=== PATIENT | female | born 1960 | race Caucasian/White ===

== ENCOUNTER 2020-12-25 17:05 | Observation (INO) ==
[2020-12-25] MEDS ORDERED: NITROGLYCERIN SL 0.4 MG TABLET SL PRN (17:49)
[2020-12-25] MEDS ORDERED: ASPIRIN 325 MG TABLET PO STA (17:49)
[2020-12-25 18:09] LABS: Basophils % 0.8 % (0.0-0.8); Eosinophils # 0.1 10*3/uL (0.0-0.87); Eosinophils % 1.7 % (0.00-10.9); Hematocrit 40.6 VOL% (35.7-47.0); Hemoglobin 13.7 GM/DL (12.0-16.0); Immature Granulocytes % 0.2 %; Immature Granulocytes Absolute 0.01 #; Lymphocytes # 1.8 10*3/uL (1.4-4.0); Lymphocytes % 37.1 % (21.3-54.2); Mean Corpuscular HGB Conc 33.7 GM/DL (32-36); Mean Platelet Volume 10.5 FL (9.6-12.0); Monocytes % 16.9 % (1.7-12.7); Neutrophils % 43.3 % (38.7-73.9); Platelet Count 131 T/CUMM (130-400); Red Cell Distribution Width 13.2 % (9.3-17.3); White Blood Count 4.8 T/CUMM (4-12)
[2020-12-25 18:21] LABS: Albumin 3.2 G/DL (3.4-5.0); Bilirubin,Total 1.1 MG/DL (0.2-1.0); Osmolality,Calculated 280.4 MOS/KG (273-304); Potassium 3.8 MMOL/L (3.5-5.1); Total Protein 7.2 G/DL (6.4-8.2)
[2020-12-25 18:27] LABS: PT Patient Result 11.7 SECS (10.5-12.0)
[2020-12-25 19:10] LABS: Hypochromasia 1+; Lymphocytes 39 % (20-55); Macrocytosis 1+; Reactive Lymphocytes 1+; Segmented Neutrophils 49 % (50-85); Total Cells Counted 100
[2020-12-25 19:11] LABS: Platelet Estimate Adequate
[2020-12-25] MEDS ORDERED: GLUCAGON 1 MG VIAL IM PRN (21:45)
[2020-12-25] MEDS ORDERED: DEXTROSE 50% 25 GM/50 ML VIAL IV PRN (21:45)
[2020-12-25] MEDS ORDERED: ALBUTEROL 0.63 MG/3 ML NEB RESP TX PRN (21:51)
[2020-12-26] MEDS ORDERED: MELATONIN 3 MG TABLET PO PRN (01:16)
[2020-12-26] MEDS ORDERED: DEXTROSE 50% 25 GM/50 ML VIAL IV PRN (02:27)
[2020-12-26] MEDS ORDERED: NICOTINE 14 MG/24 HR PATCH TRANSDERM PRN (02:31)
[2020-12-26] MEDS ORDERED: diphenhydrAMINE CAP 25 MG CAPSULE PO ONE (02:44)
[2020-12-26] MEDS: TOLNAFTATE 1% CREAM 15 GM TUBE TOP SCH ×3 (02:54→20:42)
[2020-12-26 03:13] LABS: Albumin 2.8 G/DL (3.4-5.0); Calcium 8.6 MG/DL (8.5-10.1); Osmolality,Calculated 276.8 MOS/KG (273-304); Potassium 3.4 MMOL/L (3.5-5.1); Risk Ratio 6.17; Thyroid Stimulating Hormone 0.55 uIU/ml (0.358-3.74); Total Protein 6.7 G/DL (6.4-8.2)
[2020-12-26] MEDS: INSULIN LISPRO 100 UNIT/ML SUBCUT SCH ×2 (07:45→18:29)
[2020-12-26] MEDS: ASPIRIN EC 325 MG TABLET PO SCH (09:14)
[2020-12-26] MEDS: ENOXAPARIN 40 MG/0.4 ML SYRINGE SUBCUT SCH (09:14)
[2020-12-26] MEDS: PANTOPRAZOLE 40 MG TABLET PO SCH (09:14)
[2020-12-26] MEDS ORDERED: POTASSIUM CHLORIDE 20 MEQ TABLET PO ONE (10:15)
[2020-12-26] MEDS ORDERED: ZALEPLON 5 MG CAPSULE PO PRN (18:25)
[2020-12-26] MEDS: GABAPENTIN 300 MG CAPSULE PO SCH (20:41)
[2020-12-26] MEDS: DICLOFENAC 1% GEL 100 GM TUBE TOP SCH (20:42)
[2020-12-27 05:11] LABS: Basophils % 0.9 % (0.0-0.8); Eosinophils # 0.2 10*3/uL (0.0-0.87); Hematocrit 36.4 VOL% (35.7-47.0); Hemoglobin 12.4 GM/DL (12.0-16.0); Immature Granulocytes % 0.2 %; Immature Granulocytes Absolute 0.01 #; Lymphocytes # 1.5 10*3/uL (1.4-4.0); Lymphocytes % 34.9 % (21.3-54.2); Mean Corpuscular HGB Conc 34.1 GM/DL (32-36); Mean Corpuscular Volume 99.5 FL (87-102); Mean Platelet Volume 10.7 FL (9.6-12.0); Platelet Count 100 T/CUMM (130-400); Red Blood Count 3.66 MC/CUMM (3.8-5.5); Red Cell Distribution Width 13.3 % (9.3-17.3); White Blood Count 4.3 T/CUMM (4-12)
[2020-12-27 05:39] LABS: Calcium 8.5 MG/DL (8.5-10.1); Osmolality,Calculated 284.1 MOS/KG (273-304)
[2020-12-27] MEDS: INSULIN LISPRO 100 UNIT/ML SUBCUT SCH (07:11)
[2020-12-27] MEDS: DICLOFENAC 1% GEL 100 GM TUBE TOP SCH ×2 (08:50→13:00)
[2020-12-27] MEDS: TOLNAFTATE 1% CREAM 15 GM TUBE TOP SCH (08:50)
[2020-12-27] MEDS ORDERED: REGADENOSON 0.4 MG/5 ML SYRINGE IV ONE (09:15)
[2020-12-27] MEDS: ENOXAPARIN 40 MG/0.4 ML SYRINGE SUBCUT SCH ×2 (10:52→14:17)
[2020-12-27] MEDS: PANTOPRAZOLE 40 MG TABLET PO SCH ×2 (10:52→14:17)
[2020-12-27] MEDS: DULoxetine 20 MG CAPSULE PO SCH ×2 (10:52→14:17)
[2020-12-27] MEDS: ASPIRIN EC 325 MG TABLET PO SCH ×2 (10:52→14:17)
[2020-12-27] MEDS: GABAPENTIN 300 MG CAPSULE PO SCH ×2 (10:52→14:17)
[2020-12-27 13:13] VITALS: BP 151/73
== END 2020-12-27 14:37 | disposition home or self-care (01) ==
LOC: N.ED 17:05 → N.EDINP 17:05 → N.TELEN 23:05
PROVIDERS: ADMIT Internal Medicine; ATTEND Internal Medicine